=== PATIENT | male | born 1950 | race Caucasian/White ===

== ENCOUNTER 2018-10-18 16:43 | Inpatient (IN) | payer OTHER, MEDICARE ==
--- NOTE | 2018-10-18 17:04 | EDPHY ---
H & P Stated Complaint: L ankle injury Source: Patient Exam Limitations: Physical impairment (Cognitive impairment) - Personal History Current Tetanus/Diphtheria Vaccine: Yes Current Tetanus Diphtheria and Acellular Pertussis (TDAP): Yes - Medical/Surgical History Hx Asthma: No Hx Chronic Respiratory Disease: No Hx Diabetes: No Hx Cardiac Disease: No Hx Renal Disease: No Hx Cirrhosis: No Hx Alcoholism: No Hx HIV/AIDS: No Hx Splenectomy or Spleen Trauma: No Other PMH: cognitive impairment, - Social History Smoking Status: Never smoked <Ashtyn Damon - Last Filed: 10/18/18 20:03> <José MiguelEvelio Yamil - Last Filed: 10/18/18 20:11> Time Seen by Provider: 10/18/18 17:03 HPI/ROS: HPI: This is a 67-year-old male who presents with Chief Complaint: Left ankle injury Location: Left ankle Quality: Injury Duration: 1 hr prior to arrival Signs and Symptoms: No bleeding, no radiation, no numbness, no weakness, no tingling, no incontinence, no decreased range of motion, no swelling, + pain, no fever Timing: Acute Severity: 8 out of Context: Patient has a history of cognitive impairment, presents accompanied by his , with a witnessed fall while outside walking his dog to the park on the ice. Patient reports that he slipped and twisted his left ankle while wearing mid ankle boots. He reports pain with weight-bearing and refuses to put his left foot down. He will not take his left boot off secondary to the pain. When he fell he did not hit his head or lose consciousness. He reports that his left leg curled behind him. Denies LOC/head injury/neck pain/dizziness /nausea/vomiting/amnesia. Modifying Factors: No pain medications or ice applied. Comment: ROS: A comprehensive 10 system review of systems is otherwise negative aside from elements mentioned in the history of present illness. MEDICAL/SURGICAL/SOCIAL HISTORY: Medical history: Cognitive impairment. Does not take any regular home medications. Surgical history: Denies Social history: Disabled. Denies alcohol, tobacco, drug use. CONSTITUTIONAL: Polite and cooperative, elderly white male, talkative, awake and alert, no obvious distress HEENT: Atraumatic and normocephalic. NECK: supple, no midline tenderness, flexion 45 degrees, extension 45 degrees, right and left lateral flexion 45 degrees. No meningismus. Cardiovascular: Normal S1/S2, regular rate, regular rhythm, without murmur rub or gallop. PULMONARY/CHEST: Symmetrical and nontender. Clear to auscultation bilaterally. Good air movement. No accessory muscle usage. ABDOMEN: Soft, nondistended, nontender. BACK: No midline tenderness EXTREMITIES: 2/2 pulses, strength 5/5, left lower leg and at mid calf boot that patient will not let me take off due to pain. Left Ankle: Moderate tenderness over the medial malleolus with decreased plantar flexion and dorsiflexion. Moderate tenderness over the inferior portion of the medial knee. Achilles tendon intact. no clubbing, no cyanosis or edema. NEUROLOGICAL: no focal neuro deficits. GCS 15. Light touch sensation intact. SKIN: Warm and dry, no erythema. no rash. Good capillary refill. (Ashtyn Damon ) Constitutional: Initial Vital Signs Temperature (C) 36.8 C 10/18/18 16:49 Heart Rate 88 10/18/18 16:49 Respiratory Rate 16 10/18/18 16:49 Blood Pressure 138/88 H 10/18/18 16:49 O2 Sat (%) 95 10/18/18 16:49 O2 Delivery Mode Room Air Allergies/Adverse Reactions: No Known Allergies Allergy (Unverified 10/18/18 16:49) Home Medications: Medication Instructions Recorded oxyCODONE/APAP 5/325 [Percocet 1 - 2 tab PO Q4H PRN #20 tab 10/18/18 5/325 (*)] Medical Decision Making <Ashtyn Damon - Last Filed: 10/18/18 20:03> Consult/Admit Bed Type: [facility] <Evelio Valdez - Last Filed: 10/18/18 20:11> - Diagnostics Imaging Results: Imaging Impressions Ankle X-Ray 10/18/18 16:52 Impression: 1. Complex minimally displaced fracture proximal shaft left fibula. 2. Oblique fracture distal shaft of the tibia with 12 mm lateral displacement distal aspect and minimal angulation. Tibia/Fibula X-Ray 10/18/18 16:52 Impression: 1. Complex minimally displaced fracture proximal shaft left fibula. 2. Oblique fracture distal shaft of the tibia with 12 mm lateral displacement distal aspect and minimal angulation. Procedures: Procedure: Splint placement. A long leg posterior Ortho Glass splint was applied. After application of the splint I returned and re-examined the patient. The splint was adequately immobilizing the joint and distal to the splint the patient's circulation and sensation was intact. (Ashtyn Damon) ED Course/Re-evaluation: Vital signs reviewed and stable upon arrival. Fall was mechanical in nature. Left ankle x-ray and left tibia x-ray ordered. This will be shot over the boot so I can determine the exact mechanism injury and how to remove the boot. Percocet x1 and ibuprofen 600 mg ordered with adequate pain control. 181: X-ray my shows: 1. complex minimally displaced fracture proximal shaft left fibula. 2. Oblique fracture distal shaft of the tibia with 12 mm lateral displacement distal aspect and minimal angulation. 182: ED Decision to consult Orthopedics. Spoke with Dr. Bobby who reviewed the films and recommends long leg posterior splint, crutches, follow-up appointment with him in 3-5 days to discuss outpatient surgery. Prescription for pain control provided. 1949: Patient unable to safely ambulate on crutches. ED decision to consult for admission. Spoke with hospitalist, Dr. Evans, and updated Dr. Bobby who advises he will consult on the patient. No signs of neurovascular compromise/tenting of skin/compartment syndrome/ extremities and joints examined above and below area of concern and are neurovascularly intact. This patient was seen under the supervision of my secondary supervising physician. Discussed this patient with Dr. Valdez. (Ashtyn Damon) Differential Diagnosis: Ankle injury differential diagnosis includes but is not limited to tibia fracture, fibula fracture, metatarsal fracture, LisFranc fracture, achilles tendon rupture, sprain. (Ashtyn Damon) Other Provider: PHYSICIAN DOCUMENTATION: The patient was evaluated and managed by the Physician Glass Forming Crew Member and myself. I have reviewed the chart and agree with the findings and plan of care as documented. In addition, I examined the patient myself at 1949. History confirmed as fall walking the dog. Physical findings as follows: Patient has is left lower leg splint and has normal motor sensory and perfusion in the toes. Can't walk with crutches safely, plan for hospitalist admission and orthopedic consultation. Isolated single system, appropriate for hospitalist not trauma service. I am the secondary supervising physician. (Evelio Valdez) - Data Points Medications Given: Discontinued Medications Ibuprofen (Motrin) 600 mg PO EDNOW ONE Stop: 10/18/18 17:20 Last Admin: 10/18/18 17:20 Dose: 600 mg Oxycodone/Acetaminophen (Percocet 5/325) 1 tab PO EDNOW ONE Stop: 10/18/18 17:20 Last Admin: 10/18/18 17:20 Dose: 1 tab Departure <Ashtyn Damon - Last Filed: 10/18/18 20:03> <Evelio Valdez - Last Filed: 10/18/18 20:11> - Departure Disposition: [facility] Inpatient Acute Clinical Impression: Unable to ambulate, At maximum risk for fall Fracture of left proximal fibula Qualifiers: Encounter type: initial encounter Fracture type: closed Fracture morphology: torus Qualified Code(s): S82.812A - Torus fracture of upper end of left fibula, initial encounter for closed fracture Closed fracture of left distal tibia Qualifiers: Encounter type: initial encounter Fracture morphology: torus Qualified Code(s) : S82.312A - Torus fracture of lower end of left tibia, initial encounter for closed fracture Condition: Fair
[2018-10-18] MEDS ORDERED: IBUPROFEN 600 MG TAB PO ONE (17:19)
[2018-10-18] MEDS ORDERED: OXYCODONE/APAP 5/325 TAB PO ONE (17:19)
[2018-10-18] MEDS ORDERED: BISACODYL 10 MG SUPP PR PRN (20:44)
[2018-10-18] MEDS ORDERED: MAGNESIUM HYDROXIDE 30 ML UDCUP PO PRN (20:44)
[2018-10-18] MEDS ORDERED: ONDANSETRON 4 MG/2 ML VIAL IVP PRN (20:44)
[2018-10-18] MEDS ORDERED: POLYETHYLENE GLYCOL 3350 17 GM PKT PO PRN (20:44)
[2018-10-18] MEDS ORDERED: LACTULOSE 20 GM/30 ML UDCUP PO PRN (20:44)
--- NOTE | 2018-10-18 21:02 | GHP ---
[f rep st] HISTORY AND PHYSICAL DATE OF ADMISSION: 10/18/2018 CHIEF COMPLAINT: Left leg pain. HISTORY OF PRESENT ILLNESS: This is a 67-year-old male with history of recently diagnosed dementia a nd balance problems, who presented to the emergency department with left leg pain. The patient was w alking his dog at 4 p.m. today, when he tripped on a curb and had immediate pain and was unable to be ar weight to his left leg. Denied any head trauma or loss of consciousness. PAST MEDICAL HISTORY: Recently diagnosed mild dementia. PAST SURGICAL HISTORY: Denies. HOME MEDICATIONS: Reviewed. Refer to [employer] for details. ALLERGIES: No known drug allergies. SOCIAL HISTORY: He is . He denies any tobacco or illicit drug use. He drinks wine with his occasionally. He moved from [facility] 40 years ago for the skiing. FAMILY HISTORY: Reviewed and noncontributory. REVIEW OF SYSTEMS: Comprehensive 10-point review of systems was done and is negative, except for as mentioned in the HPI. PHYSICAL EXAM: VITAL SIGNS: Blood pressure 110/60, pulse 75, respiratory rate 18, O2 saturation 95% on room air. Temperature afebrile. GENERAL: No acute distress. HEAD: Normocephalic, atraumatic. EYES: PERRLA. Sclerae anicteric. MOUTH: Moist mucous membranes. NECK: Supple. No lymphadenop athy. CARDIOVASCULAR: S1, S2. No JVD. There is no right lower extremity edema. Left lower leg is swollen. PULMONARY: Lungs are clear. No wheezes, rales, or rhonchi. ABDOMEN: Soft, nontender, n ondistended. No guarding or rebound tenderness. Normoactive bowel sounds. EXTREMITIES: Left lower leg is in a splint. He is able to flex and extend his toes. Cap refill is less than 2 seconds. No clubbing or cyanosis. NEURO: Cranial nerves 2-12 grossly intact. No focal motor or sensory defici ts. SKIN: Clear. No rashes. DIAGNOSTICS: No blood work has been done. Tib-fib x-ray, which I visualized and personally interpreted, shows complex minimally displaced fract ure of the proximal shaft of the left fibula with oblique fracture distal shaft of the tibia with 12 mm lateral displacement. ASSESSMENT AND PLAN: This is a 67-year-old male, status post slip and fall today, who sustained a le ft tibia-fibula fracture. Plan: The patient will be admitted to the hospital since he is unable to walk or use crutches due to his underlying dementia and problems with balance. He has been seen and evaluated by Dr. Bobby who plans to take him to the operating room for ORIF tomorrow. He will be placed n.p.o. after midnight. The patient appears to be medically appropriate to take to the operating room. His functional status appears to be good and he does not report any concerning symptoms for underlying occult coronary art trung disease. The patient is high risk for VTE and will be placed on Lovenox for DVT prophylaxis postoperatively. /[id number]/MODL
[2018-10-18] MEDS: oxyCODONE IR 5 MG TAB PO PRN (22:48)
[2018-10-18] MEDS: SENNOSIDES/DOCUSATE SODIUM TAB PO SCH (22:49)
[2018-10-19] MEDS: oxyCODONE IR 5 MG TAB PO PRN ×5 (05:39→23:53)
[2018-10-19 05:42] LABS: PLATELET COUNT 169 10^3/uL (150-400)
--- NOTE | 2018-10-19 08:34 | HOSPPROG ---
Hospitalist Progress Note Assessment/Plan: Emery is a 67 y/o who was recently diagnosed w dementia. He had some balance problems. He tripped on the curb and had immediate pain to his left leg. First encounter, chart reviewed. *left displace tibia-fibia fx -ORIF tomorrow *dementia -he is alert and appropriate, knows why he is here and the plan for surgery. *dvt prophylaxis: will initiate after surgery Subjective: Emery said his pain is overall well managed. Objective: Vital Signs Temp Pulse Resp BP Pulse Ox 36.5 C 66 18 117/78 93 10/19/18 07:31 10/19/18 07:31 10/19/18 07:31 10/19/18 07:31 10/19/18 07:31 Laboratory Results 10/19/18 04:56 10/19/18 04:56 10/18/18 10/19/18 10/20/18 05:59 05:59 05:59 Output Total 350 Balance -350 - Physical Exam Constitutional: no apparent distress, not in pain, uncomfortable Ears, Nose, Mouth, Throat: hearing normal Cardiovascular: regular rate and rhythym Respiratory: no respiratory distress Gastrointestinal: normoactive bowel sounds Skin: warm, other (good cms on feet) Musculoskeletal: muscular tenderness Neurologic: AAOx3 Psychiatric: interacting appropriately, not anxious, not encephalopathic ICD10 Worksheet Patient Problems: Problems Problem Status Onset At maximum risk for fall Acute Closed fracture of left distal tibia Acute Fracture of left proximal fibula Acute Unable to ambulate Acute
[2018-10-19] MEDS ORDERED: Herbals/Supplements -Info Only PO SCH (09:00)
[2018-10-19] MEDS: SENNOSIDES/DOCUSATE SODIUM TAB PO SCH ×2 (09:21→19:52)
[2018-10-19] MEDS: OMEGA-3 FATTY ACIDS 1,000 MG CAP PO SCH (09:22)
[2018-10-19] MEDS: CHOLECALCIFEROL VIT D3 1,000 UNITS TAB PO SCH (09:22)
[2018-10-19] MEDS: CYANO/VITAMIN B12 100 MCG TAB PO SCH (10:20)
[2018-10-19] MEDS: ASCORBIC ACID 250 MG TAB PO SCH (10:20)
[2018-10-19] MEDS: ENOXAPARIN 40 MG/0.4 ML SYR SC SCH ×4 (10:23→14:43)
--- NOTE | 2018-10-19 10:25 | PDMN ---
Medical Necessity Medical necessity: Pt meets IP criteria as of 10/18/2018 per MD and ERIC MENA-MD ( Musculoskeletal Disease); est los > 2 mn for ongoing tx and management of tibia/ fibula fracture s/p mechanical fall; requiring orthopedic consultation with planned surgical intervention and pain control.
--- NOTE | 2018-10-19 13:08 | SOAPPROG ---
SOAP Progress Note Assessment/Plan: Assessment: Plan: 10/19/18 13:07 LT distal tibia fracture reviewed op/non op treatments again with Emery and his they have decided on ORIF plan for OR Subjective: pain controlled resting in bed at bedside Objective: Vital Signs Temp Pulse Resp BP Pulse Ox 37.1 C 84 18 128/77 H 91 L 10/19/18 11:23 10/19/18 11:23 10/19/18 11:23 10/19/18 11:23 10/19/18 11:23 Laboratory Results 10/19/18 04:56 10/19/18 04:56 10/18/18 10/19/18 10/20/18 05:59 05:59 05:59 Output Total 350 Balance -350 splint intact compartments soft moving toes brisk cap refill sens to LT intact ICD10 Worksheet Patient Problems: Problems Problem Status Onset At maximum risk for fall Acute Closed fracture of left distal tibia Acute Fracture of left proximal fibula Acute Unable to ambulate Acute
[2018-10-19] MEDS ORDERED: ceFAZolin 2 GM/DEXTROSE 100 ML IV ONE (13:09)
--- NOTE | 2018-10-19 16:33 | ASMTCMCOM ---
CM Note CM Note Notes: Pt admitted to hospital after tripping and fracturing his tib/fib. Pt lives at home with his and has been recently diagnosed with dementia and has had balance problems. Pt will go to OR tomorrow, PT/OT will evaluate. DC Plan: TBD Date Signed: 10/19/2018 04:32 PM Electronically Signed By:Melba Corbett RN
--- NOTE | 2018-10-19 19:00 | GCON ---
[f rep st] CONSULTATION OFFICE CONSULTATION DATE OF CONSULTATION: 10/18/2018 REASON FOR CONSULT: Left tibia fracture, proximal fibula fracture. HPI: Emery is a 67-year-old male with recently diagnosed dementia, he was accompanied to the emergency department by his , who tripped and fell earlier this evening while walking his dog. He was seen in the emergency department. X-rays were obtained which showed a distal tibia fracture and proximal fibula fracture. He was placed in a long-leg posterior splint; however , due to some altered balance, there was some concern about him going home, so he has been admitted to the hospitalist, Dr. Sheppard, who is going to admit him, and I saw him in the emergency department. PRIOR MEDICAL HISTORY: Dementia, SURGICAL HISTORY: None. HOME MEDICATIONS: See attached list. ALLERGIES: No known drug allergies. SOCIAL HISTORY: He is . [place] live here in town. He does not smoke. Occasional alcohol use. REVIEW OF SYSTEMS: No shortness of breath or chest pain. Some recent dizziness. Otherwise, review of systems is unremarkable. PHYSICAL EXAM: VITAL SIGNS: Blood pressure is 114/58, heart rate 81, respiratory rate is 18. Oxygen saturation is 95% on room air. GENERAL: Alert and oriented x3. He is very comfortable. Splint has been applied to his left lower extremity. is at his bedside. HEENT: Normocephalic, atraumatic. Extraocular muscles are intact. NECK: Supple. There is no lymphadenopathy. No JVD. CHEST: Clear to auscultation. CARDIOVASCULAR: Regular rate and rhythm. ABDOMEN: Soft, nontender, nondistended. EXTREMITIES: Left lower extremity alignment is straight. Compartments are soft. He is moving his toes well. He has 2+ dorsalis pedis and posterior tibial pulses. DATA REVIEWED: X-rays, 4 views of the lower leg, show a minimally displaced distal tibia fracture, it is oblique, and a minimally displaced proximal fibula fracture, there may be a slight split that goes into the joint. ASSESSMENT: Left distal tibia fracture. PLAN: We spent 15 minutes [id number] time reviewing surgical options. We could attempt to try to treat this in a splint with a cast or we could proceed with operative fixation. I think, at this point, it is going to be much easier to manage this with operative fixation. The fracture may be a little distal for a nail, so it may be better served by a plate. They would like to think about how they want to proceed with a cast/nonoperative versus operative. They are leaning more toward operative fixation. We will get him admitted to the hospital. He is quite comfortable now on pain medications and now that the leg is splinted. Continue to use ice overnight. I will visit with them in the morning. If they choose the surgical option, we could fix him on , and I would anticipate another day or so in the hospital to be ready for discharge home. Otherwise, if they choose for nonoperative treatment, we will continue the splint and try and cast him in the office in a week or so. Plan will be that he can eat tomorrow, Wednesday, and surgery will be potentially if that is the way they decide to proceed. /[id number]/MODL MTDD
[2018-10-20] MEDS: oxyCODONE IR 5 MG TAB PO PRN ×4 (03:28→21:21)
[2018-10-20 05:24] LABS: PLATELET COUNT 165 10^3/uL (150-400)
[2018-10-20] MEDS ORDERED: HYDROmorphONE/DILAUDID 1 MG/ML INJ IVP PRN (08:32)
--- NOTE | 2018-10-20 08:34 | HOSPPROG ---
Hospitalist Progress Note Assessment/Plan: Emery is a 67 y/o who was recently diagnosed w dementia. He had some balance problems. He tripped on the curb and had immediate pain to his left leg. *left displace tibia-fibia fx -ORIF today *dementia -he is alert and appropriate, knows why he is here and the plan for surgery. *dvt prophylaxis: will initiate after surgery *plan: NPO, will initiate iv fluids and iv prn pain medications. Subjective: Emery said he has no pain and is comfortable Objective: Vital Signs Temp Pulse Resp BP Pulse Ox 37.7 C 85 15 119/81 H 88 L 10/20/18 04:00 10/20/18 04:00 10/20/18 04:00 10/20/18 04:00 10/20/18 04:00 Laboratory Results 10/20/18 05:05 10/20/18 05:05 10/19/18 10/20/18 10/21/18 05:59 05:59 05:59 Intake Total 1000 Output Total 350 1725 Balance -350 -725 - Physical Exam Constitutional: no apparent distress, not in pain Eyes: PERRL Ears, Nose, Mouth, Throat: hearing normal Cardiovascular: regular rate and rhythym, no murmur, rub, or gallop Respiratory: no respiratory distress Gastrointestinal: normoactive bowel sounds Skin: warm Neurologic: AAOx3 Psychiatric: interacting appropriately ICD10 Worksheet Patient Problems: Problems Problem Status Onset At maximum risk for fall Acute Closed fracture of left distal tibia Acute Fracture of left proximal fibula Acute Unable to ambulate Acute
[2018-10-20] MEDS ORDERED: LR 1,000 ML IV SCH (09:00)
[2018-10-20] MEDS: ASCORBIC ACID 250 MG TAB PO SCH (09:43)
[2018-10-20] MEDS: CHOLECALCIFEROL VIT D3 1,000 UNITS TAB PO SCH (09:43)
[2018-10-20] MEDS: CYANO/VITAMIN B12 100 MCG TAB PO SCH (09:43)
[2018-10-20] MEDS: SENNOSIDES/DOCUSATE SODIUM TAB PO SCH ×2 (09:44→21:11)
[2018-10-20] MEDS: OMEGA-3 FATTY ACIDS 1,000 MG CAP PO SCH (09:44)
--- NOTE | 2018-10-20 09:59 | CPEKG ---
Test Reason : OPEN Blood Pressure : / mmHG Vent. Rate : 083 BPM Atrial Rate : 084 BPM P-R Int : 134 ms QRS Dur : 092 ms QT Int : 360 ms P-R-T Axes : 044 006 002 degrees QTc Int : 423 ms Sinus rhythm Borderline T abnormalities, inferior leads Confirmed by Kenton Evans ([id number]) on 10/20/2018 9:59:16 AM Referred By: Dexter Sheppard Confirmed By:Kenton Evans
--- NOTE | 2018-10-20 13:14 | POSTANESTH ---
Post Anesthetic Evaluation Cardiovascular Status: Normal, Stable Respiratory Status: Normal, Stable Level of Consciousness/Mental Status: Can Participate in Eval, Moderately Sleepy Pain Control: Adequate, Prn Tx Ordered Nausea/Vomiting Control: Adequate, Prn Tx Ordered Complications Possibly Related to Anesthesia: None Noted
--- NOTE | 2018-10-20 13:15 | PDANEPAE ---
ANE History of Present Illness 67 yo male with tib/fib fracture after fall. ANE Past Medical History - Cardiovascular History Hx Hypertension: No Hx Arrhythmias: No Hx Chest Pain: No - Pulmonary History Hx COPD: No Hx Asthma/Reactive Airway Disease: No Hx Oxygen in Use at Home: No Hx Sleep Apnea: No Sleep Apnea Screening Result - Last Documented: Negative - Neurologic History Hx Cerebrovascular Accident: No Hx Seizures: No Hx Dementia: Yes Neurologic History Comment: recently diagnosed with early dementia, balance issues - Endocrine History Hx Diabetes: No Hypothyroid: No Hyperthyroid: No - Renal History Hx Renal Disorders: No - Liver History Hx Hepatic Disorders: No - GI History Hx Gastrointestinal Disorders: No - Chronic Pain History Chronic Pain: No ANE Review of Systems Review of Systems: - Systems Constitutional: Reports: no symptoms, fever (today - no fevers at home before fall) Cardiac: Reports: no symptoms Respiratory: Reports: no symptoms Muscolosketal: Reports: other (leg pain) ANE Patient History - Allergies Allergies/Adverse Reactions: No Known Allergies Allergy (Verified 10/18/18 20:27) - Home Medications Home Medications: Ascorbic Acid [Vitamin C 250 mg (*)] 250 mg PO DAILY 10/18/18 [Last Taken ] Cholecalciferol Vit D3 [Vitamin D3 (*)] 1,000 units PO DAILY 10/18/18 [Last Taken 10/18/18] Cyanocobalamin [Vitamin B12 (*)] 100 mcg PO DAILY 10/18/18 [Last Taken 10/18/18] Herbals/Supplements -Info Only 1 ea PO DAILY 10/18/18 [Last Taken Unknown] [place] Waters-3 Fatty Acids [Fish Oil 1000 mg (*)] 1,000 mg PO DAILY 10/18/18 [Last Taken 10/18/18] - NPO status NPO Since - Liquids (Date): 10/20/18 NPO Since - Liquids (Time): 00:00 NPO Since - Solids (Date): 10/20/18 NPO Since - Solids (Time): 00:00 - Anes Hx Anes Hx: no prior problems - Smoking Hx Smoking Status: Never smoked - Family Anes Hx Family Anes Hx: neg - N/A ANE Labs/Vital Signs - Labs Result Diagrams: 10/20/18 05:05 10/20/18 05:05 - Vital Signs Blood Pressure: 127/79 Heart Rate: 86 Respiratory Rate: 17 O2 Sat (%): 94 Height: 182.88 cm Weight: 79.379 kg ANE Physical Exam - Airway Neck exam: FROM Mallampati Score: Class 2 Mouth exam: normal dental/mouth exam - Pulmonary Pulmonary: clear to auscultation - Cardiovascular Cardiovascular: regular rate and rhythym - ASA Status ASA Status: II ANE Anesthesia Plan Anesthesia Plan: GA w LMA Regional Anesthesia: single shot NB, adductor canal FNB, popliteal SNB, POPC/PSR
[2018-10-20] MEDS ORDERED: ceFAZolin 2 GM/DEXTROSE 100 ML IV ONE (13:30)
[2018-10-20] MEDS ORDERED: BUPIVACAINE/EPI 0.5% 30 ML SDV ONE (13:41)
[2018-10-20] MEDS ORDERED: BACITRACIN 50,000 UNITS/10 ML SYR IRR ONE (13:42)
[2018-10-20] MEDS ORDERED: POLYMYXIN B SULFATE 500,000 UNIT/10 ML SYR IRR ONE (13:42)
[2018-10-20] MEDS ORDERED: LIDOCAINE 2% 5 ML SDV ONE (14:21)
[2018-10-20] MEDS ORDERED: DEXAMETHASONE 4 MG/ML VIAL ONE (14:21)
[2018-10-20] MEDS ORDERED: fentaNYL 100 MCG/2 ML INJ ONE ×2 (14:22)
[2018-10-20] MEDS ORDERED: PROPOFOL 200 MG/20 ML VIAL ONE (14:22)
[2018-10-20] MEDS ORDERED: ROPIVACAINE HCL 100 MG/20 ML INJ ONE ×2 (14:24)
[2018-10-20] MEDS ORDERED: HYDROmorphONE/DILAUDID 2 MG/ML INJ IVP PRN (15:56)
[2018-10-20] MEDS ORDERED: ALBUTEROL 3 ML DEYVIAL IH PRN (15:56)
[2018-10-20] MEDS ORDERED: LR 500 ML IV PRN (15:56)
[2018-10-20] MEDS ORDERED: oxyCODONE IR 5 MG TAB PO PRN (15:56)
[2018-10-20] MEDS ORDERED: fentaNYL 100 MCG/2 ML INJ IVP PRN (15:56)
[2018-10-20] MEDS ORDERED: PROMETHAZINE HCL 25 MG/ML INJ IVP PRN (15:56)
[2018-10-20] MEDS ORDERED: ONDANSETRON 4 MG/2 ML VIAL IVP PRN (15:56)
[2018-10-20] MEDS ORDERED: NALOXONE HCL 0.4 MG/ML INJ IVP PRN (15:56)
--- NOTE | 2018-10-20 16:24 | POSTOPPROG ---
Post Op Note Date of Operation: 10/20/18 Surgeon: Sam Bobby College Football Coach: lucio portillo Anesthesiologist: palafox Anesthesia: GET(General Endotracheal) Pre-op Diagnosis: displaced distal tibia fracture left Post-op Diagnosis: same Indication: displaced fx Procedure: ORIF tibia Findings: displaced comminuted fx Inf/Abcess present in the surg proc area at time of surgery?: No Depth: Superfical (Skin SQ) EBL: Minimal Complications: none
[2018-10-20] MEDS ORDERED: OXYCODONE/APAP 5/325 TAB PO PRN (16:25)
[2018-10-20] MEDS ORDERED: D5W 1/2 NS W/ 20 KCl/L 1,000 ML IV SCH (16:30)
[2018-10-20] MEDS: ACETAMINOPHEN 325 MG TAB PO PRN (17:23)
--- NOTE | 2018-10-20 17:26 | GOP ---
[f rep st] OPERATIVE REPORT DATE OF OPERATION: 10/20/2018 SURGEON: Sam Bobby MD SCIENTIFIC ASSOCIATE: Alonzo Mckee, INVENTORY WORKER, [facility]. ANESTHESIA: Popliteal block plus general endotracheal tube anesthesia. ANESTHESIOLOGIST: Dr. Giles. PREOPERATIVE DIAGNOSIS: Displaced distal tibia fracture. POSTOPERATIVE DIAGNOSIS: Displaced distal tibia fracture. PROCEDURE PERFORMED: Open reduction and internal fixation, left distal tibia. FINDINGS: INDICATIONS: Emery is a 67-year-old male who slipped and fell while walking his dog 2 nights ago and sustained a distal tibia fracture. He was admitted to the hospital for pain control, brought to the operating room today for definitive fixation of his fracture. DESCRIPTION OF PROCEDURE: After appropriate informed consent was obtained, the patient was taken to the operating room and placed supine on the operating table. A time-out was performed. Patient was identified. Correct site was identified, matched with radiographs available in the room. He receive d 2 g of Ancef preoperatively. A popliteal block was then placed in the preoperative area. General endotracheal tube anesthesia was administered. He was then positioned on the OR table, which was rad iolucent with all bony prominences well padded. Left lower extremity was prepped and draped in the u sual sterile fashion. I exsanguinated the limb, inflated the tourniquet to 250 mmHg. Total tourniqu et time was 42 minutes. I made a standard anterior medial incision over the tibia. Soft tissues wer e carefully dissected. Bleeding was controlled electrocautery. Using elevator, the fracture fragmen ts were freed up. There was a split that traveled down toward the joint, but did not enter the tibia l joint. I was able to reduce the fracture and hold it in place with a bone-holding clamp. The redu ction was confirmed with AP and lateral fluoroscopic images. I then placed a precontoured 12-hole pl ate, held it in place with a clamp and then placed compression followed by locking screws with good b yandel purchase. Final imaging obtained showed satisfactory reduction and positioning of the fracture f ragments. The wound was irrigated. The deep layers were closed with 0 Vicryl. Superficial layers c losed with 2-0 Vicryl. Skin was closed with 3-0 Quill Stitch in a subcuticular fashion. Steri-Strip s were applied to the skin. I applied an additional 10 mL of 0.5% Marcaine with epinephrine around t he incision. A sterile dressing and a posterior splint with the foot in neutral dorsiflexion was megan lied. The patient was awakened from anesthesia and taken to the recovery room in satisfactory condit ion. There were no immediate intraoperative complications. IMPLANTS USED: Synthes medial pre-contoured distal tibia plate, 12 hole. TOTAL TOURNIQUET TIME: Forty-two minutes at 250 mmHg. COMPLICATIONS: None. DRAINS: None. /[id number]/MODL
[2018-10-20] MEDS: ceFAZolin 2 GM/DEXTROSE 100 ML IV SCH (21:13)
[2018-10-21] MEDS: ceFAZolin 2 GM/DEXTROSE 100 ML IV SCH (05:03)
[2018-10-21 05:17] LABS: PLATELET COUNT 160 10^3/uL (150-400)
[2018-10-21] MEDS: CHOLECALCIFEROL VIT D3 1,000 UNITS TAB PO SCH (09:16)
[2018-10-21] MEDS: ENOXAPARIN 40 MG/0.4 ML SYR SC SCH (09:16)
[2018-10-21] MEDS: SENNOSIDES/DOCUSATE SODIUM TAB PO SCH ×2 (09:16→20:28)
[2018-10-21] MEDS: OMEGA-3 FATTY ACIDS 1,000 MG CAP PO SCH (09:16)
[2018-10-21] MEDS: CYANO/VITAMIN B12 100 MCG TAB PO SCH (09:17)
[2018-10-21] MEDS: ASCORBIC ACID 250 MG TAB PO SCH (09:17)
--- NOTE | 2018-10-21 12:11 | HOSPPROG ---
Hospitalist Progress Note Assessment/Plan: Emery is a 67 y/o who was recently diagnosed w dementia. He had some balance problems. He tripped on the curb and had immediate pain to his left leg. *left displace tibia-fibia fx -ORIF on 10/20 -Therapies are recommending SNF *dementia -he is alert and appropriate, knows why he is here and the plan for surgery. *hiccups -trial of drinking water for 20 seconds -if they cont, trial of baclofen *dvt prophylaxis: LMWH *plan: reviewed care with him and his , hopefully to SNF soon. Subjective: Emery said he is fine, having some pain to his left lower extremity. Objective: Vital Signs Temp Pulse Resp BP Pulse Ox 37.2 C 97 19 122/78 H 92 10/21/18 11:13 10/21/18 11:13 10/21/18 11:13 10/21/18 11:13 10/21/18 11:13 Laboratory Results 10/21/18 05:03 10/21/18 05:03 10/20/18 10/21/18 10/22/18 05:59 05:59 05:59 Intake Total 1000 1295 Output Total 1725 1353 Balance -725 -58 - Physical Exam Constitutional: appears nourished, uncomfortable Eyes: PERRL Ears, Nose, Mouth, Throat: hearing normal Cardiovascular: regular rate and rhythym Respiratory: no respiratory distress Skin: warm, other (good cms on left foot) Musculoskeletal: generalized weakness Neurologic: AAOx3 Psychiatric: interacting appropriately, poor memory ICD10 Worksheet Patient Problems: Problems Problem Status Onset At maximum risk for fall Acute Closed fracture of left distal tibia Acute Fracture of left proximal fibula Acute Unable to ambulate Acute
--- NOTE | 2018-10-21 15:16 | ASMTCMCOM ---
CM Note CM Note Notes: Met with pt and , PT/OT recommend SNF. Discussed options and they would like referral to go to [facility] in [place]. DC Plan: SNF Date Signed: 10/21/2018 03:15 PM Electronically Signed By:Melba Corbett RN
[2018-10-21] MEDS: oxyCODONE IR 5 MG TAB PO PRN (20:27)
[2018-10-21] MEDS: ACETAMINOPHEN 325 MG TAB PO PRN (20:28)
[2018-10-22 06:42] LABS: PLATELET COUNT 168 10^3/uL (150-400)
[2018-10-22 07:58] VITALS: BP 133/78
--- NOTE | 2018-10-22 09:04 | HOSPPROG ---
Hospitalist Progress Note Assessment/Plan: Emery is a 67 y/o who was recently diagnosed w dementia. He had some balance problems. He tripped on the curb and had immediate pain to his left leg. *left displace tibia-fibia fx -ORIF on 10/20 -Therapies are recommending SNF *dementia -he is alert and appropriate -his main issue is w speaking, but understands -doesn't have short term or nurse educator memory loss *hiccups -trial of drinking water for 20 seconds -if they cont, trial of baclofen *dvt prophylaxis: LMWH *plan: dc today- Subjective: Emery has no complaints, feeling fine. Objective: Vital Signs Temp Pulse Resp BP Pulse Ox 36.9 C 90 16 133/78 H 92 10/22/18 07:56 10/22/18 07:56 10/22/18 07:56 10/22/18 07:56 10/22/18 07:56 Laboratory Results 10/22/18 06:20 10/22/18 06:20 10/21/18 10/22/18 10/23/18 05:59 05:59 05:59 Intake Total 1295 Output Total 1353 Balance -58 - Physical Exam Constitutional: no apparent distress, appears nourished, not in pain Eyes: PERRL Ears, Nose, Mouth, Throat: hearing normal, oral thrush Respiratory: no respiratory distress Gastrointestinal: normoactive bowel sounds Skin: warm Musculoskeletal: generalized weakness Neurologic: AAOx3 Psychiatric: interacting appropriately ICD10 Worksheet Patient Problems: Problems Problem Status Onset At maximum risk for fall Acute Closed fracture of left distal tibia Acute Fracture of left proximal fibula Acute Unable to ambulate Acute
[2018-10-22] MEDS: CYANO/VITAMIN B12 100 MCG TAB PO SCH (09:17)
[2018-10-22] MEDS: SENNOSIDES/DOCUSATE SODIUM TAB PO SCH (09:18)
[2018-10-22] MEDS: CHOLECALCIFEROL VIT D3 1,000 UNITS TAB PO SCH (09:18)
[2018-10-22] MEDS: ASCORBIC ACID 250 MG TAB PO SCH (09:18)
[2018-10-22] MEDS: OMEGA-3 FATTY ACIDS 1,000 MG CAP PO SCH (09:18)
[2018-10-22] MEDS: ENOXAPARIN 40 MG/0.4 ML SYR SC SCH (09:21)
--- NOTE | 2018-10-22 09:29 | PDIAF ---
- Diagnosis Diagnosis: l displaced tib/fib fx s/p ORIF, dementia Code Status: Full Code - Medication Management Discharge Medications: electronically signed and located in the Home Medication List. - Orders Services needed: Physical Therapy, Occupational Therapy Diet Recommendation: no restrictions on diet Diet Texture: Regular Texture Diet Additional Instructions: activity per orthopedics f/u w Dr Bobby in two weeks continue Lovenox for 12 more days - Follow Up Care Current Providers and Referrals: ZACHARY HECK [Primary Care Provider] - As per Instructions
--- NOTE | 2018-10-22 10:00 | GDS ---
[f rep st] DISCHARGE SUMMARY DISCHARGE DIAGNOSES: 1. Left displaced tibia fracture, status post ORIF. 2. Dementia. 3. Hiccups. CONSULTATION: Dr. Bobby. HISTORY OF PRESENT ILLNESS: Briefly, the patient is a 67-year-old gentleman without any significant past medical history, but dementia. He presented to the emergency room with left leg pain. He was walking his dog, when he tripped on a curb and had immediate pain. It was noted that he had a left tibia-fibula fracture. He went to the operating room with Dr. Sam Bobby. He has done extremely well with surgery and ambulating. He will be discharged to a detention facility and further followup with Dr. Bobby. HOSPITAL COURSE: 1. Left displaced tibia-fibula fracture, status post ORIF on September, to go to rehab for strengthening. 2. Dementia. He is alert, appropriate. At times, he told me, he has trouble speaking. 3. Hiccups, resolved. DISCHARGE CONDITION: Stable. Blood pressure is 133/78, heart rate of 90, respiratory rate 16, O2 saturation on room air 92%, temperature 36.9 Celsius. MEDICATIONS AT DISCHARGE: Please see the EMR. DISCHARGE INSTRUCTIONS: 1. Follow with Dr. Sam Bobby. 2. Activity per Dr. Sam Bobby. Greater than 30 minutes discharging and coordinating the patient's care. /[id number]/MODL MTDD
--- NOTE | 2018-10-22 10:22 | SOAPPROG ---
DELIO Progress Note Assessment/Plan: Assessment: Plan: 10/19/18 13:07 LT distal tibia fracture reviewed op/non op treatments again with Emery and his they have decided on ORIF plan for OR 10/22/18 10:21 POD # 2 ORIF lt tibia NWB LLE x 6 weeks [facility] F/U [facility] 7-10 days Subjective: Pain much better today Objective: Splint c/d/i moving toes brisk cap refill Vital Signs Temp Pulse Resp BP Pulse Ox 36.9 C 90 16 133/78 H 92 10/22/18 07:56 10/22/18 07:56 10/22/18 07:56 10/22/18 07:56 10/22/18 07:56 Laboratory Results 10/22/18 06:20 10/22/18 06:20 10/21/18 10/22/18 10/23/18 05:59 05:59 05:59 Intake Total 1295 Output Total 1353 Balance -58 ICD10 Worksheet Patient Problems: Problems Problem Status Onset At maximum risk for fall Acute Closed fracture of left distal tibia Acute Fracture of left proximal fibula Acute Unable to ambulate Acute
--- NOTE | 2018-10-22 12:17 | ASMTLACE ---
LACE Length of stay for Answers: 4-6 days current admission Acuity / Level of Answers: Yes Care: Did the patient have an inpatient admission? Comorbidities - select Answers: Dementia all that apply # of Emergency department Answers: 1-2 visits in the last 6 months Score: 11 Date Signed: 10/22/2018 12:16 PM Electronically Signed By:Ashtyn Ring RN
[2018-10-22] MEDS: ACETAMINOPHEN 325 MG TAB PO PRN (12:35)
--- NOTE | 2018-10-22 13:01 | ASDISCHSUM ---
Discharge Information Plan Status:SNF Medically Cleared to Leave:10/21/2018 Discharge Date:10/21/2018 CM D/C Disposition:Custodial Facility ADT D/C Disposition:Custodial Facility Projected Discharge Date:10/22/2018 11:00 AM Transportation at D/C:Wheelchair Van Discharge Delay Reason: Follow-Up Date:10/22/2018 11:00 AM Discharge Slot:2 - 12:01 pm - 18:00 pm Final Diagnosis:Left displaced tibia fracture, s/p ORIF, dementia, hiccups Placement Information Referral Type:*Custodial/SNF Referral ID:[facility]-[id number] Provider Name:[facility] [place] Address 1:[address] Phone Number: Address 2: Fax Number: [facility]:[place] Selection Factors:Patient/Family Choice State:[place] Patient Contact Information Contact Name:LENA Relationship: Address:[address] [facility] Work Phone: [facility]:[place] Alternate Phone: [facility]/Zip Code:[place] [address] Email: Financial Information Financial Class:Medicare Primary Plan Desc:MEDICARE INPATIENT Primary Plan Number:[id number] Secondary Plan Desc:[employer]/MDR SUPPLEMENT Secondary Plan Number:[id number] Assessment Information LACE LACE Length of stay for Answers: 4-6 days current admission Acuity / Level of Answers: Yes Care: Did the patient have an inpatient admission? Comorbidities - select Answers: Dementia all that apply # of Emergency department Answers: 1-2 visits in the last 6 months Score: 11 Date Signed: 10/22/2018 12:16 PM Electronically Signed By:Ashtyn Ring RN [facility] CM Progress Note CM Note CM Note Notes: Pt admitted to hospital after tripping and fracturing his tib/fib. Pt lives at home with his and has been recently diagnosed with dementia and has had balance problems. Pt will go to OR tomorrow, PT/OT will evaluate. DC Plan: TBD Date Signed: 10/19/2018 04:32 PM Electronically Signed By:Melba Corbett RN [facility] CM Progress Note CM Note CM Note Notes: Met with pt and , PT/OT recommend SNF. Discussed options and they would like referral to go to [facility] in [place]. DC Plan: SNF Date Signed: 10/21/2018 03:15 PM Electronically Signed By:Melba Corbett RN Case Management Discharge Plan Note Case Management Discharge Discharge Order Complete? Answers: Yes Followup Appointment 10/22/2018 12:00 AM Patient to Obtain Answers: Other Notes: via [facility] Medications Transportation Arranged Answers: Other Notes: Wheelchair transport arranged and to be paid for by Maribell with [facility] . Transport will Pick (Date 10/22/2018 01:00 PM & Time) DAVID Complete Answers: No Notes: N/A Case Management Transport Answers: Yes Notes: Facesheet printed for Form Complete wheelchair transport. Faxed Final Orders Answers: Yes Notes: All orders/paperwork se nt via [facility]; confirm ed receipt with Maribell at [facility]. Agency/Facility Transfer Answers: Yes Notes: Discharge Report Printed & Faxed to orders/paperwork sent v tx Receiving Agency [facility]; confirmed receipt with Maribell at [facility]. Family Notified Answers: Yes Notes: Pt notified. at bedside. Discharge Comments Notes: Reviewed chart, spoke with Ghada Vanegas NP regarding discharge plan of care, pt's progress. Per Ghada, pt to discharge to [facility] in [place] today. Call received from Maribell at [facility]. Per Maribell, able to accept pt. Maribell to arrange and pay for wheelchair transport to the facility. All discharge orders and paperwork sent via [employer]; confirmed receipt with Maribell. Report called by GOPAL Watters. Update provided to pt and pt's spouse. Questions answered regarding discharge, transport and what to expect at [facility]. Support provided. IM signed, copy placed in chart. Pt to follow up as directed. CM available for any further issues or concerns. Discharge Plan: [facility] in [place] Date Signed: 10/22/2018 12:56 PM Electronically Signed By:Ashtyn Ring RN Intervention Information Intervention Type:*IM-Signed Date of Service:10/22/2018 12:16 PM Patient Type:Inpatient Staff Member:GOPAL Ring, Ashtyn Hours: Discipline: Severity: Comment:
== END 2018-10-22 13:01 | DRG 494 ==
LOC: F3N 21:05
PROVIDERS: ADMIT Family Medicine; ATTEND Family Medicine
PROC: 0QSH04Z Reposition Left Tibia with Internal Fixation Device, Open Approach (ICD-10-PCS; principal; 2018-10-20 14:30)
DX: S82.232A Displaced oblique fracture of shaft of left tibia, initial encounter for closed fracture (principal); S82.832A Other fracture of upper and lower end of left fibula, initial encounter for closed fracture; F03.90 Unspecified dementia, unspecified severity, without behavioral disturbance, psychotic disturbance, mood disturbance, and anxiety; R06.6 Hiccough; W01.0XXA Fall on same level from slipping, tripping and stumbling without subsequent striking against object, initial encounter; Y93.K1 Activity, walking an animal; Y92.480 Sidewalk as the place of occurrence of the external cause; Z23 Encounter for immunization
CPT/HCPCS: 97116-GP; 97161-GP; 97165-GO; C1713; G0008; J0690; J1100; J1650; J2704; J2795; J3010

== ENCOUNTER → 2019-01-15 | Outpatient (CLI) | payer MEDICARE, OTHER | LOC: FCPNEURO 20:00 | PROVIDERS: ATTEND Psychiatry & Neurology Sleep Medicine | DX: G47.33 Obstructive sleep apnea (adult) (pediatric) (principal) ==

== ENCOUNTER → 2019-02-23 | Outpatient (CLI) | payer OTHER, MEDICARE | LOC: FIMAGING 16:38 ==